=== PATIENT | female | born 1985 | race Caucasian/White ===

== ENCOUNTER 2020-08-19 14:58 | Outpatient (CLI) | payer BC, SELFPAY ==
--- NOTE | 2020-08-24 12:29 | WPDHOLTEREM ---
Holter/Event Monitor Holter/Event Monitor Date of procedure: 08/19/20 Procedure Type: 24 hour holter monitor Indications: Tachycardia Conclusion: 1. 24 hour holter monitor on 08/19/20. 2. Underlying rhythm is sinus rhythm. HR range 55-141 bpm; average HR 78 bpm. 3. There are 16 premature supraventricular complexes and 2 supraventricular couplets and 1 supraventricular triplet. No supraventricular tachycardia. 4. There is one ventricular couplet. No ventricular tachycardia. 5. No sinoatrial or atrioventricular blocks. No significant pauses greater than 2 seconds. 6. Patient reports symptoms of warm/tight feeling which demonstrate sinus rhythm at 69 bpm.
== END 2020-08-19 14:59 | disposition home or self-care (01) ==
LOC: ANHCARD 15:01
PROVIDERS: PCP Advanced Practice Midwife; Visit Provider Advanced Practice Midwife
DX: R00.0 Tachycardia, unspecified (principal)
CPT/HCPCS: 93225; 93226

== ENCOUNTER 2021-04-14 18:41 | Emergency (ER) | payer BC, SELFPAY ==
--- NOTE | ~2021-04-14 | XR_ITS ---
EXAMINATION: XR chest 2V EXAM DATE: 04/14/2021 19:09 INDICATION: Chest pain, LT Sided Dull Pain X 2 Weeks, No Cardiac Hx TECHNIQUE: Frontal and lateral projections of the chest obtained and reviewed. There is no prior john dy for comparison. FINDINGS: The lungs are clear. There are no pleural effusions. The cardiomediastinal silhouette is within normal limits. There is no pneumothorax suspected. There is moderate mid thoracic dextroscol iosis. IMPRESSION: No acute cardiopulmonary findings. Dextroscoliosis. Reviewed, dictated and finalized at location A. NCIAL MANAGEMENT ANALYST
--- NOTE | 2021-04-14 18:42 | ECG_ITS ---
Measurements Intervals [place] Rate: 79 P: 48 AK: 139 QRS: 90 QRSD: 90 T: 44 QT: 373 QTc: 429 Interpretive Statements SINUS RHYTHM INCOMPLETE RIGHT BUNDLE BRANCH BLOCK BORDERLINE ST-T WAVE ABNORMALITY- ANT/INF LEADS BASELINE ARTIFACT- V3 BORDERLINE ECG Electronically Signed On 04-14-2021 19:54:23 [employer]ACE EVIDENCE TECHNICIAN by Fernando Collins D.O.
[2021-04-14 18:51] VITALS: BP 122/72; PULSE 91; RESP 18; TEMP 36.6; O2SAT 100
[2021-04-14 19:24] LABS: Basophils Absolute Auto 0.1 K/mm3 (0.0-0.1); Basophils Percent Auto 0.8 % (0.2-1.2); Eosinophils Absolute Auto 0.2 K/mm3 (0-0.3); Eosinophils Percent Auto 3.3 % (0-4.4); Hematocrit 37.3 % (37.0-47.0); Immature Granulocyte Absolute 0.01 K/mm3 (0.00-0.031); Immature Granulocyte Percent A 0.2 % (0-0.5); Lymphocytes Absolute Auto 1.56 K/mm3 (0.9-3.2); Mean Corpuscular HGB Conc 34.9 g/dl (32-36); Mean Corpuscular Hemoglobin 30.8 pg (26-34); Mean Corpuscular Volume 88.4 fl (80-100); Mean Platelet Volume 10.9 fl (7.4-10.4); Monocytes Absolute Auto 0.6 K/mm3 (0.1-0.6); Monocytes Percent Auto 10.1 % (2.6-8.5); Neutrophils Absolute Auto 3.6 K/mm3 (1.3-6.7); Neutrophils Percent Auto 59.6 % (45.5-73.1); Platelet Count Result 184 k/mm3 (150-375); Red Blood Count 4.22 M/mm3 (4.2-5.4); Red Cell Distribution Width 11.6 % (11.5-14.5)
[2021-04-14 19:34] LABS: INR 0.9; Prothrombin Time 12.5 Seconds (11.1-14.7)
[2021-04-14 19:35] LABS: Anion Gap 8 mmol/L (8-16); Blood Urea Nitrogen 12 mg/dL (7-17); Calcium 9.4 mg/dL (8.4-10.2); Carbon Dioxide 26 mmol/L (22-30); Chloride 103 mmol/L (98-107); Estimated CRCL calculation 84 ml/min; Estimated Glomerular Filt Rate > 60; Glucose 104 mg/dL (65-110); Partial Thromboplastin Time 29.7 SECONDS (22.3-36.8); Potassium 3.4 mmol/L (3.4-5.0); Sodium 137 mmol/L (137-145)
[2021-04-14 19:47] LABS: Troponin I < 0.012 ng/mL (0.000-0.034)
[2021-04-14 21:20] VITALS: BP 117/79; PULSE 63; RESP 16; O2SAT 100
[2021-04-14 21:37] VITALS: PULSE 68
[2021-04-14 22:35] LABS: Troponin I < 0.012 ng/mL (0.000-0.034)
[2021-04-14 23:12] VITALS: BP 105/76; PULSE 76; RESP 16; O2SAT 98
[2021-04-14 23:46] LABS: Free T4 Free Thyroxine 1.04 ng/mL (0.78-2.19)
--- NOTE | 2021-04-15 00:27 | ED.CHESTPAIN ---
HPI - Chest Pain General Chief Complaint: Chest Pain Stated Complaint: chest pain Time Seen by Provider: 04/14/21 22:03 Source: patient Mode of arrival: ambulatory Limitations: no limitations History of Present Illness HPI narrative: 35-year-old female Here for evaluation of chest discomfort Patient complains of which she characterizes as kind of a funny tight feeling in the chest and back which is been intermittently present for 2 or 3 weeks She cannot reliably precipitated, nor can she reliably relieve it after its occurred It is not exertional in fact sometimes is relieved by exertion She does not have a cough or shortness of breath She has an apple watch which indicated at least one occurrence of a heart rate of approximately 170 but it does not seem that she was aware of palpitations at that time Patient tells me she does not feel like she is particularly stressed, but then she mentions that she has a job, 3 kids, and her , and had cut back on her workouts due to Covid, in other words would appear to have several stressors Earlier this year she had a visit with her OB and mentioned palpitations, she was sent for a Holter monitor and it was done, but she never did follow-up and learn the results I looked them up and there was a report of a subjective tight feeling in the chest while she was wearing it which was associated with a normal heart rate and nothing else Related Data Home Medications Medication Instructions Recorded Confirmed No Home Medications 04/14/21 04/14/21 Allergies Allergy/AdvReac Type Severity Reaction Status Date / Time No Known Allergies Allergy Verified 04/14/21 22:11 Review of Systems Review of Systems: All systems reviewed & are unremarkable except as noted in HPI and below Constitutional: Constitutional: Reports no additional constitutional complaints, Denies chills, Denies fever(s) and Denies headache(s) Eyes: Eyes: Reports no additional eye complaints and Denies change in vision ENT: Denies headache(s) and Denies sore throat Cardiovascular: Cardiovascular: Reports no additional cardiovascular complaints Respiratory: Respiratory: Denies cough and Denies dyspnea Gastrointestinal: Gastrointestinal: Denies abdominal pain, Denies diarrhea and Denies vomiting Genitourinary: Genitourinary: Denies urinary frequency and Denies dysuria Musculoskeletal: Musculoskeletal: Denies deformity, Denies arthralgias, Denies joint swelling and Denies numbness Integumentary/Breasts: Skin/Breast: Denies rash and Denies wounds Neurologic: Denies headache(s), Denies focal weakness and Denies numbness Psychiatric: Psychiatric: Reports no additional psychiatric complaints Endocrine: Endocrine: Reports no additional endocrine complaints Hematologic/Lymphatic: Hematologic/Lymphatic: Reports no additional hematologic/lymphatic complaints Allergic/Immunologic: Allergic/Immunologic: Reports no additional allergic/immunologic complaints Exam Const: General: cooperative, no acute distress and alert Orientation/consciousness: patient oriented x3 (alert) HENMT: Head: normal to inspection, normocephalic and atraumatic Ears: external ears normal General nose exam: no epistaxis Eyes: Conjunctivae: conjunctivae normal EOM: EOMs intact bilaterally Neck: Neck: normal visual inspection, supple and no JVD Resp: Effort & Inspection: normal respiratory effort and not labored Auscultation: clear to auscultation bilaterally, no rales, no rhonchi, no wheezes and other (BS =) Cardio: Rate: regular rate Rhythm: regular rhythm Heart sounds: no murmurs GI: GI Palp: Yes Soft to palpation and No Tenderness to palpation present (GI) Skin: General skin exam: normal color and no rashes or lesions noted Neuro: General: patient oriented x3 (alert) and moves all extremities Speech: normal speech Extrem: General: normal to inspection and no pedal edema Psych: Affect: normal affect Course Course
[2021-04-15 00:47] VITALS: BP 104/71; PULSE 70; RESP 14; O2SAT 100
== END 2021-04-15 01:07 | disposition home or self-care (01) ==
PROVIDERS: Emergency Medicine; Emergency Provider Emergency Medicine; PCP Nurse Practitioner Family
DX: R07.89 Other chest pain (principal); R00.2 Palpitations
CPT/HCPCS: 36415; 71046; 80048; 84439; 84443; 84484; 85025; 85610; 85730; 93005; 99284

== ENCOUNTER 2021-12-14 17:15 | Emergency (ER) | payer BC, SELFPAY ==
--- NOTE | 2021-12-14 17:28 | ED.SKABFB ---
HPI - Skin/Abscess/Foreign Bdy General Chief complaint: Skin/Abscess/Foreign Body Stated complaint: INSECT BITE Time Seen by Provider: 12/14/21 17:19 Source: patient Mode of arrival: ambulatory Limitations: no limitations History of Present Illness HPI narrative: Ms. Flores is a 36-year-old female patient presenting to the clinic today with complaints of possible insect bite to her left upper arm. She reports that she first noticed this yesterday. The area is itchy but nonpainful. She has a red rash area around the bite. Related Data Allergies Allergy/AdvReac Type Severity Reaction Status Date / Time No Known Allergies Allergy Verified 12/14/21 17:26 Review of Systems Review of Systems: Pertinent positives per HPI. Patient denies any fever, chills, rash, headache, visual changes, dizziness, cough, runny nose, sore throat, shortness of breath, chest pain, palpitations, nausea, vomiting, diarrhea, constipation, abdominal pain, or any urinary issues. PMFSH Comments At the time of my signature, I reviewed and agree with the nursing past medical, surgical, social, and family history. There is no relevant family history pertinent to the patient complaint. Exam Narrative: General: Well-developed, well nourished, in no apparent distress Head: Normocephalic, atraumatic. Cardio: Regular rate and rhythm, s1 and s2 normal, no murmur appreciated. Resp: Clear to auscultation bilaterally, no rhonchi, rales, wheezing or rubs. Integumentary: [place], warm, and dry, insect bite light brown center with localized redness/mild swelling without induration. Mildly tender to palpation. Course Course Emergency Course: Portions of this record may have been created with voice recognition software. Level of Care: Express Care Visit Vital Signs Vital signs: Vital signs reviewed Discharge Plan Discharge Clinical Impression: Insect bite Patient Disposition: Home, Self-Care Condition: Stable Instructions: Antibiotic Form, Insect Bite or Sting (ED), General Allergic Reaction (ED) Additional Instructions: Triamcinolone cream as prescribed May continue use of antibiotic cream such as triple antibiotic ointment or bacitracin. Tylenol/Motrin as needed for any pain Follow-up with your PCP in 3 to 5 days if symptoms persist or sooner if they worsen. Prescriptions: New triamcinolone acetonide 0.1 % cream 1 applic topical BID 7 Days Qty: 30 0RF Follow-up/Referrals: Zenobia,Yvonne Deras APRN [Primary Care Provider] - Time of Disposition: 17:33 Quality NIHSS Nursing Documentation ED NIHSS nursing documentation: reviewed/agree
[2021-12-14 17:30] VITALS: BP 110/73; PULSE 81; RESP 16; TEMP 37.7; O2SAT 100
== END 2021-12-14 17:37 | disposition home or self-care (01) ==
PROVIDERS: Emergency Provider Nurse Practitioner Family; PCP Nurse Practitioner Family
DX: S40.862A Insect bite (nonvenomous) of left upper arm, initial encounter (principal); W57.XXXA Bitten or stung by nonvenomous insect and other nonvenomous arthropods, initial encounter
CPT/HCPCS: 99213; G0463

== ENCOUNTER 2023-01-30 09:38 | Outpatient (CLI) | payer OTHER, SELFPAY ==
[2023-01-30 15:17] LABS: Basophils Percent Auto 0.8 % (0.2-1.2); Eosinophils Absolute Auto 0.2 K/mm3 (0-0.3); Eosinophils Percent Auto 3.7 % (0-4.4); Hematocrit 38.3 % (37.0-47.0); Hemoglobin 12.9 g/dL (12.0-15.0); Immature Granulocyte Absolute 0.01 K/mm3 (0.00-0.031); Immature Granulocyte Percent A 0.2 % (0-0.5); Lymphocytes Absolute Auto 0.99 K/mm3 (0.9-3.2); Lymphocytes Percent Auto 20.4 % (18.3-44.2); Mean Corpuscular HGB Conc 33.7 g/dl (32-36); Mean Corpuscular Hemoglobin 30.9 pg (26-34); Mean Corpuscular Volume 91.8 fl (80-100); Mean Platelet Volume 12.1 fl (7.4-10.4); Monocytes Absolute Auto 0.4 K/mm3 (0.1-0.6); Monocytes Percent Auto 8.8 % (2.6-8.5); Neutrophils Absolute Auto 3.2 K/mm3 (1.3-6.7); Neutrophils Percent Auto 66.1 % (45.5-73.1); Platelet Count Result 202 k/mm3 (150-375); Red Blood Count 4.17 M/mm3 (4.2-5.4); Red Cell Distribution Width 11.6 % (11.5-14.5); White Blood Count 4.9 K/mm3 (4.5-10.0)
[2023-01-30 16:00] LABS: Cortisol Random 3.68 ug/dL
[2023-01-30 16:26] LABS: Hemoglobin A1C 4.5 % (<5.7)
[2023-01-31 10:26] LABS: LDL Cholesterol Direct 91 mg/dL
[2023-01-31 11:00] LABS: Chloride 102 mmol/L (98-107); Potassium 4.3 mmol/L (3.4-5.0); Sodium 136 mmol/L (137-145)
[2023-01-31 11:01] LABS: Anion Gap 6 mmol/L (8-16); Blood Urea Nitrogen 10 mg/dL (7-17); Calcium 8.9 mg/dL (8.4-10.2); Carbon Dioxide 28 mmol/L (22-30); Estimated Glomerular Filt Rate > 60; Glucose 80 mg/dL (65-110)
[2023-01-31 11:02] LABS: Alanine Aminotransferase 17 U/L (6-35); Albumin Level 4.6 g/dL (3.5-5.1); Aspartate Amino Transferase 42 U/L (14-36); Bilirubin,Total 1.2 mg/dL (0.2-1.3); Cholesterol 176 mg/dL (0-200); LDL Cholesterol Direct 89 mg/dL; Total Protein 7.7 g/dL (6.3-8.2); Triglycerides 70 mg/dL (<150)
[2023-01-31 11:03] LABS: Alkaline Phosphatase 54 U/L (38-126); HDL Direct 56 mg/dL
== END 2023-01-30 09:39 | disposition home or self-care (01) ==
LOC: ANHGOSHLAB 09:42
PROVIDERS: PCP Nurse Practitioner Family; Visit Provider Nurse Practitioner Family
DX: Z00.00 Encounter for general adult medical examination without abnormal findings (principal); Z13.220 Encounter for screening for lipoid disorders; Z13.1 Encounter for screening for diabetes mellitus; Z13.29 Encounter for screening for other suspected endocrine disorder; R63.5 Abnormal weight gain
CPT/HCPCS: 36415; 80053; 80061; 82533; 83036; 83525; 84443; 85025

== ENCOUNTER 2023-10-11 14:57 | Outpatient (CLI) | payer OTHER, SELFPAY ==
--- NOTE | ~2023-10-11 | MMUS_ITS ---
EXAMINATION: MM diagnostic niesha BI w gopal, US breast BI complete HISTORY: Right breast lump at approximately 3:00 for several weeks TECHNIQUE: Full field and spot ML, MLO and CC 3-D tomosynthesis images of both breasts were performed and synthetic 2-D images were generated. CAD analysis was submitted and interpreted. High resolution complete bilateral breast ultrasound examination including all 4 quadrants and subareolar area of ea ch breast was performed. COMPARISON: None BREAST PARENCHYMAL COMPOSITION: The breasts are heterogeneously dense, which may obscure small masses . FINDINGS: MAMMOGRAPHIC FINDINGS: Approximately 1.5 x 1.75 cm circumscribed mass is noted in the posterior aspect of the inner mid to l ower right breast. Heterogeneously dense stroma may obscure additional masses. Bilateral complete ultrasound examination was performed. No malignant calcification, skin thickening or retraction of either breast is noted. ULTRASOUND: Right breast: 4:00 3 cm from nipple: Corresponding to the palpable lump is an irregular circumscribed hypoechoic s olid mass measuring approximately 1.7 x 1.2 x 2 cm in dimension. No internal vascularity is noted on color flow imaging. There is through transmission. The appearance is most consistent with benign fibr oadenoma. 1:00 3 cm from nipple: Well-circumscribed sonolucency measuring 1.5 x 3 x 5 x 4 mm, consistent with small cyst 1:00 3 cm from nipple: 2.4 x 2.8 mm hypoechoic lesion without internal vascularity or posterior shado wing, probably benign 2:00 3 cm from nipple: 3.9 x 3.1 x 4.2 mm oval circumscribed hypoechoic lesion without internal vascu larity or posterior shadowing, probably benign 2:00 2 cm from nipple: Well-circumscribed hypoechoic solid lesion measuring 2.6 x 6.7 x 7.1 mm, without internal vascularity or posterior shadowing, probably benign 9:00 4 cm from nipple: 1.6 x 2.8 x 3 mm circumscribed hypoechoic area, probably benign 10:00 2 cm from nipple: 2.2 x 2.5 x 2.8 mm probable cyst Left breast: 1:00 subareolar area: There are well-circumscribed hypoechoic 2.6 x 3.3 x 3.8 mm lesion without poste rior shadowing, probably benign 9:00 4 cm from nipple: Well-circumscribed 2.8 x 4.2 x 4.1 mm hypoechoic lesion without posterior shadowing, probably benign 10:00 3 cm from nipple: 3.6 mm cyst IMPRESSION: 1. Probable bilateral benign findings 2. Bilateral 6 month follow-up ultrasound imaging is recommended BI-RADS category 3, probably benign findings. Reviewed, dictated and finalized at location B. IMPRESSION: 1. Probable bilateral benign findings 2. Bilateral 6 month follow-up ultrasound imaging is recommended BI-RADS category 3, probably benign findings.
== END 2023-10-11 14:58 ==
PROVIDERS: PCP Nurse Practitioner Obstetrics & Gynecology; Visit Provider Nurse Practitioner Obstetrics & Gynecology
DX: N63.10 Unspecified lump in the right breast, unspecified quadrant (principal); R92.8 Other abnormal and inconclusive findings on diagnostic imaging of breast
CPT/HCPCS: 76641; 77062; 77066; G0279